=== PATIENT | female | born 1945 | race Caucasian/White ===

== ENCOUNTER → 2017-08-27 | Emergency (ER) | payer OTHER ==
[~2017-08-27] VITALS: Ht 152.4 cm; Wt 72.6 kg
[~2017-08-27] MED LIST: CELECOXIB100 MG PO; COZAAR25 MG; FORTAMET500 MG; ORPHENADRINE C100 MG PO; SYNTHROID200 MCG
== END | disposition home or self-care (01) ==
LOC: ER 18:46
DX: S00.03XA Contusion of scalp, initial encounter (principal); S30.0XXA Contusion of lower back and pelvis, initial encounter; S19.9XXA Unspecified injury of neck, initial encounter; W01.198A Fall on same level from slipping, tripping and stumbling with subsequent striking against other object, initial encounter; Y93.89 Activity, other specified; Y92.218 Other school as the place of occurrence of the external cause; Y99.8 Other external cause status

== ENCOUNTER 2022-06-09 16:29 | Emergency (ER) | payer OTHER ==
[~2022-06-09] VITALS: Ht 154.9 cm; Wt 76.2 kg
[2022-06-09] MEDS ORDERED: PEPCID AC20 MG PO (21:46)
[2022-06-09] MEDS ORDERED: LEVSIN/SL0.125 MG SL (21:46)
== END 2022-06-09 22:00 | disposition home or self-care (01) ==
LOC: ER 16:29
DX: R10.31 Right lower quadrant pain (principal)

== ENCOUNTER 2022-10-24 18:21 | Emergency (ER) | payer OTHER ==
[~2022-10-24] VITALS: Ht 152.4 cm; Wt 82.1 kg
[~2022-10-24 18:21] MED LIST changes: +LEVSIN/SL0.125 MG SL; +PEPCID AC20 MG PO
[2022-10-24] MEDS ORDERED: OZEMPIC0.25 MG/0. SQ (18:40)
[2022-10-24] MEDS ORDERED: PROTONIX20 MG PO (18:40)
[2022-10-24] MEDS ORDERED: PEPCID AC20 MG PO (21:54)
[2022-10-24] MEDS ORDERED: INTESTINEX680 M1 PO (21:54)
[2022-10-24] MEDS ORDERED: DICY20TA PO (21:54)
== END 2022-10-24 22:04 | disposition home or self-care (01) ==
LOC: ER 18:21
DX: R10.9 Unspecified abdominal pain (principal); K21.9 Gastro-esophageal reflux disease without esophagitis